=== PATIENT | male | born 1955 | race Caucasian/White ===

== ENCOUNTER 2024-05-20 10:05 | Emergency (ER) | payer MEDICARE, SELFPAY ==
[2024-05-20 10:31] VITALS: BP 144/94; PULSE 82; RESP 22; TEMP 36.1; O2SAT 95; BMI 50.2
--- NOTE | 2024-05-20 11:21 | ED.GENADULT ---
HPI - General Adult General Date Seen: 05/20/24 Chief complaint: Abdominal Pain Stated complaint: Hot/cold flashes, rhina hip pain, abd pain Time Seen by Provider: 05/20/24 11:21 History of Present Illness HPI narrative: 68-year-old male presenting to the ER today for pain in his upper abdomen as well as pain in both hips more so in the left hip than on the right. No fevers. Urine is darker color than normal but not bloody Per medical records from [facility] he has a history of hypertension, high cholesterol, morbid obesity, type 2 diabetes, diabetic retinopathy, the coronary artery disease with stents in his RCA. He was sent to the ER today by the [facility] triage nurse line. Med list includes Atorvastatin Glimepiride Symbicort Albuterol Atenolol Aspirin 81 Nitroglycerin p.r.n. Tamsulosin 0.4 mg Effient Lantus 10 units daily Imdur 30 mg daily Metformin 500 b.i.d. Losartan 12.5 mg daily The patient has quite a few complaints. Difficult for the patient to provide chronological history. It sounds like he has had a productive cough for quite sometime. He saw his primary care provider was started on a be oral inhaler about a month or so ago, he thinks. Since then his cough a gotten better. However he got ?a cold? about 3 weeks ago which included cough, stuffy nose, sore throat, fever and chills. And since then he has been feeling unwell. He says he took Tylenol and NyQuil and got the cold better. However as often happens when he gets a cold he developed a bad muscle ache in the center of his back. That happened a couple of weeks ago. He had he has massaging chair to get it to go away but then the next day developed pain more low in his back and more in his right flank and right lumbar paraspinous muscles. That is been coming and going since then. He has also developed pain in both of his hips. Discomfort and pain especially in the left hip but also in the right hip. It hurts whenever tries to walk or bend or flex his hips. He says his hips hurt so bad that he is not able to bend forward to put his shoes on for the past couple of days. He has been having to bend his leg backward in order to get it into the shoe. He has no known fall. No injury. No discoloration of his hips or legs. No rash. No redness. No bruising. No numbness or weakness in his legs. For the past several days he has noted fairly dark colored urine. He says he has had a poor appetite and has been eating much and has not been able to get into the kitchen because his hips are so sore. It sounds like he takes Tylenol and Aleve sporadically for his hip pain. He had taken some of that medicine yesterday and felt well enough to get out of the house to do some errands. He did have a couple of tacos yesterday when he was out doing errands. He also has been constipated for the past several days save for passage a small bowel movement yesterday. Since yesterday he has developed worsening central upper abdominal pain. He does not really know why it is getting worse. He thinks he might be constipated. He is not nauseous or vomiting. Past surgical abdominal history includes umbilical hernia repair. No cholecystectomy or appendectomy. 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 He has coronary disease with stents and is on aspirin and Effient. Related Data Previous Rx's ?Medication ?Instructions ?Recorded cephalexin 500 mg capsule 500 mg PO Q12H #14 caps 05/20/24 hydromorphone 2 mg tablet 2 mg PO Q6H PRN pain #7 tabs 05/20/24 (Dilaudid) Allergies Allergy/AdvReac Type Severity Reaction Status Date / Time No Known Drug Allergies Allergy Verified 05/20/24 10:29 [facility] Social History Smoking Status: Never smoker Do you use any of these nicotine containing products: None Second hand tobacco smoke exposure: No How often do you have a drink containing alcohol: never How often do you have six or more drinks on one occasion: Never AUDIT-C Alcohol total score: 0 Non-prescribed substance use: denies use service: No Exam Narrative: Exam Narrative: Constitutional: Appears well-developed and well-nourished. Alert. Conversant and very polite but tangential historian. Uncomfortable. HENT: Head: Atraumatic. Nose: Nose normal. Mouth/Throat: Oral mucosa is clear but dry, not desiccated or cracked. no trismus. Pharynx normal. Tonsils symmetric. No tonsillar enlargement, erythema, or exudate. Eyes: Conjunctivae normal. EOM normal. Pupils equal, round, and reactive to light. No scleral icterus. Neck: Normal range of motion. Neck supple. No tracheal deviation present. No JVD Cardiovascular: Normal rate, regular rhythm. No gallop. No friction rub. No murmur heard. Symmetric radial artery pulses Pulmonary/Chest: Effort normal. Because his hips are hurting is not able to sit forward for posterior lung exam. No stridor. No respiratory distress. No wheezes. No rales. No rhonchi . No tenderness. Abdominal: Soft. Bowel sounds normal. Protuberant due to body habitus but non tympanic. No mass. Bilateral upper and epigastric tenderness. No rebound. No guarding. Musculoskeletal: RUE: Normal range of motion. No tenderness. No deformity LUE: Normal range of motion. No tenderness. No deformity Pelvis is stable. He has tenderness to palpation laterally over both hips. No bruising. No redness or warmth. RLE: Range of motion the hip is limited by pain to about 10 or 15? of flexion. No deformity. No rotation. No crepitus. Quad, hamstring, femoral shaft nontender. Knee, lower leg, ankle, foot nontender. No significant ankle edema. LLE: Range of motion the hip is limited by pain to about 10 of flexion. Slightly worse than the right hip. No deformity. No rotation. No crepitus. Quad, hamstring, femoral shaft nontender. Knee, lower leg, ankle, foot nontender. No significant ankle edema. No deformity Lymph: No inguinal adenopathy. Neurological: Alert and oriented to person, place, and time. Normal strength. CN II-VII intact. No sensory deficit. GCS eye subscore is 4. GCS verbal subscore is 5. GCS motor subscore is 6. Normal coordination Skin: Skin is warm and dry. No rash noted. No pallor. Normal capillary refill. Psychiatric: Normal mood. Normal affect. Const: Vital Signs, click to edit/add: Vital Signs - 24 hr 05/20/24 10:31 Temperature 97 F L Pulse Rate [Pulse Oximeter] 82 Respiratory Rate 22 Blood Pressure [Ri ght Forearm] 144/94 H Pulse Oximetry 95 Oxygen Delivery Me thod Room Air Course Course ED Course: Recheck-says his hip pain is only marginally improved after Toradol. We discussed additional analgesics. He says in the past he has been very intolerant of oxycodone and does not know if he has ever had any success with hydrocodone. He recalls that after his hip surgery oxycodone cause substantial side effects for him but he did well with Dilaudid. He would like some of that. However he wants to drive himself home and it is not have anyone who could give him a safe ride home today. He is comfortable if we would give him a prescription for pain med so he can take it after he gets home today We discussed results of his workup. He does have evidence for pyuria and leukocytosis with which I think probably suggest an active UTI. No evidence for pyelonephritis or kidney stone, or renal failure. With his symptoms and leukocytosis, consider possible sepsis but no evidence for septic shock. Patient does not want to consider staying in the hospital. He wants to go home. Vital Signs Vital signs: Initial Vital Signs Temperature 97 F L 05/20/24 10:31 Temperature Source Temporal Artery Scan 05/20/24 10:31 Pulse Rate 82 05/20/24 10:31 Pulse Rhythm Regular 05/20/24 10:31 Respiratory Rate 22 05/20/24 10:31 Blood Pressure 144/94 H 05/20/24 10:31 Blood Pressure Mean 110 H 05/20/24 10:31 Blood Pressure Position Sitting 05/20/24 10:31 Pulse Oximetry 95 05/20/24 10:31 Oxygen Delivery Method Room Air 05/20/24 10:31 Vital Signs Temperature 97 F L 05/20/24 10:31 Pulse Rate 82 05/20/24 10:31 Respiratory Rate 22 05/20/24 10:31 Blood Pressure 144/94 H 05/20/24 10:31 Pulse Oximetry 95 05/20/24 10:31 Oxygen Delivery Method Room Air 05/20/24 10:31 Temperature 97 F L 05/20/24 10:31 Pulse Rate 82 05/20/24 10:31 Respiratory Rate 22 05/20/24 10:31 Blood Pressure 144/94 H 05/20/24 10:31 Pulse Oximetry 95 05/20/24 10:31 Oxygen Delivery Method Room Air 05/20/24 10:31 Medications Administered Medications: Discontinued Medications Generic Name Dose Route Start Last Admin Trade Name Devin PRN Reason Stop Dose Admin Sodium Chloride 500 mls @ 500 mls/hr 05/20/24 11:45 05/20/24 13:57 0.9 % Sodium Chloride 500 Ml IV 05/20/24 12:44 Infused .Q1H ONE Infusion Ketorolac Tromethamine 15 mg 05/20/24 11:45 05/20/24 12:45 Ketorolac 15 Mg/Ml Inj IVP 05/20/24 11:46 15 mg ONCE ONE Administration Medical Decision Making MDM Narrative Medical decision making narrative: 68-year-old male is referred to the ER today by his primary care clinic phone triage nurse. He has multiple symptoms including bilateral hip pain, body aches, low back pain, abdominal pain, concern for constipation, intermittent subjective chills, recent ?cold. He had apparently told his phone triage nurse about some shortness of breath but says to me that he is not really short of breath is just that he is having trouble walking because his hips are so sore Differential is quite broad. 1. Neuro. No headache. No recent fall. No confusion. No focal numbness or weakness. At this point I do not think he needs CT or MRI of his brain or spine. 2. Infectious disease. Does report some subjective fevers and chills at home. He is getting over a recent cold but says he is not having any coughing any more. Lung sounds are generally clear. No wheezing to suggest a post viral asthma or COPD exacerbation. Chest CT is negative for pneumonia. COVID influenza PCR negative. He does have abdominal pain. Urinalysis shows evidence for pyuria indicating possible UTI. CT scan is negative for any sign of cholecystitis, pancreatitis, colitis, diverticulitis, appendicitis. Skin exam negative for any signs of cellulitis. He has bilateral hip pain but no single joint to suggest septic arthritis. He does have leukocytosis. Pulse and blood pressure are normal. Venous lactic acid is normal. No evidence for sepsis physiology or septic shock at this time. Will treat him with a course of outpatient oral cephalexin for UTI. Discussed that urine culture is pending. 3. ortho. No recent falls or injuries but has had multiple sore areas of pain including the upper back pain a couple of weeks ago, low back pain last week, and for the past couple of days bilateral hip pain (left> right). The main complaint today is his hip pain. CT scan of his head hips and pelvis is obtained and shows no evidence for any acute obvious bony injury. However CT imaging is somewhat limited by artifact his hip replacements. He has no recent falls the which raise concern for hip or pelvic fracture. At this point I do not think he needs admission for hip MRI 4. Cardiac. Per his phone triage note they had mentioned some shortness of breath. He says he is not really short of breath. We did check screening EKG and troponin which are normal. Chest CT shows no evidence for pulmonary edema. N terminal proBNP is fairly low at 420. 5. Pulmonary. With reported shortness of breath per phone triage nurse consider possible PE with his recent illness and not moving around a lot at home. CT scan of his chest is fortunately negative for PE. He is not hypoxic or short of breath here in the ER. Lung sounds clear. No wheezing. 6. GI: LFTs and lipase normal. No evidence for acute cholecystitis or choledocholithiasis. He was concerned he might be very constipated based on his limited stool output for the past [address] scan negative for obstruction it does show a small to moderate stool burden in the rectum and sigmoid but otherwise not a large stool burden. Patient wants to discharge home. Prescription for Dilaudid 2 mg tablets-#7. Opiate precautions reviewed Lab Data Labs: Lab Results 05/20/24 05/20/24 Range/Units 12:15 12:55 WBC 13.21 H (4.50-11.00) K/uL RBC 4.55 (4.30-5.90) m/uL Hgb 13.4 L (13.5-17.5) gm/dL Hct 40.4 (37.0-53.0) % MCV 89 (80-100) fL MCH 30 (26-34) pg MCHC 33 (32-36) gm/dL RDW Coeff of Masha 13.0 (11.5-15.5) % Plt Count 286 (140-440) K/uL Neut % (Auto) 89.3 H (42.0-72.0) % Lymph % (Auto) 3.3 L (20-44) % [place] % (Auto) 6.7 (0.0-11.0) % Eos % (Auto) 0.3 (0.0-7.0) % Baso % (Auto) 0.2 (0.0-3.0) % Neut # (Auto) 11.80 H (1.7-7.0) K/uL Lymph # (Auto) 0.40 L (0.90-2.90) K/uL [place] # (Auto) 0.90 (0.00-0.90) K/UL Eos # (Auto) 0.00 (0.00-0.50) K/uL Baso # (Auto) 0.00 (0.00-0.30) K/uL Abs Immat Gran (auto) 0.00 (0.00-0.30) K/uL Imm/Tot Granulo (auto) 0.2 % Sodium 132 L (135-149) mmol/L Potassium 4.4 (3.6-5.1) mmol/L Chloride 97 (96-114) mmol/L Carbon Dioxide 25 (20-32) mmol/L Anion Gap 10 (7-15) mEq/L BUN 19 (7-30) mg/dL Creatinine 0.6 (0.5-1.5) mg/dL Estimated Creat Clear 74.01 Estimated GFR 106 ml/min Glucose 247 H (60-115) mg/dL Lactate 1.4 (0.5-1.9) mmol/L Calcium 9.1 (8.4-10.6) mg/dL Total Bilirubin 2.1 H (0.1-1.5) mg/dL AST 29 (12-35) U/L ALT 39 (4-50) U/L Alkaline Phosphatase 117 (40-150) U/L Troponin I < 0.01 L (0.01-0.04) ng/mL NT-Pro-B Natriuret Pep 420 pg/mL Total Protein 6.1 (6.0-8.3) g/dL Albumin 3.5 (3.3-5.0) g/dL Lipase 24 (23-300) U/L Urine Color Holly A (Yellow) Urine Appearance Clear (Clear) Urine pH 5.5 (5.0-8.5) Ur Specific [place] 1.025 (1.000-1.030) Urine Protein 1+ A (Negative) Urine Glucose (UA) Trace A (Negative) Urine Ketones 1+ A (Negative) Urine Blood Negative (Negative) Urine Nitrite Positive A (Negative) Urine Bilirubin 2+ A (Negative) Urine Urobilinogen 2.0 A (0.2-1.0) Ur Leukocyte Esterase Negative (Negative) Urine RBC 0-2 (0-2) Urine WBC 5-10 A (0-5) Ur Squamous Epith Cells Moderate A (None-Few) Urine Bacteria Moderate A (None) Urine Mucus Moderate A (None) SARS-CoV-2 (PCR) Negative SARS-CoV-2 (Negative) Influenza Type A (PCR) Negative PCR FLU A (Negative) Influenza Type B (PCR) Negative PCR FLU B (Negative) Imaging Data CT scan - chest: Attestation: I have reviewed the pertinent imaging results. Radiologist's impression: IMPRESSION: 1. No evidence of pulmonary embolus. 2. No acute pulmonary consolidation. 3. Severe coronary atherosclerosis. CT scan - abdomen: Attestation: I have reviewed the pertinent imaging results. Radiologist's impression: IMPRESSION: 1. No dilated bowel or localized inflammation. 2. Mild hepatic steatosis. ECG Data Attestation: I personally reviewed and interpreted this ECG as follows: Interpretation: Normal sinus rhythm Rate: 73 MO: 188 QRS axis: Normal axis. No pathologic Q-waves ST segment/T wave: Nonspecific T-wave flattening throughout. No ST segment elevation or depression. QTc: 416 Discharge Plan Discharge Clinical Impression: Acute UTI, Acute hip pain, bilateral, Myalgia Instructions: Urinary Tract Infection in Men (DC), Arthralgia (ED) Additional Instructions: As we discussed, please come back to the ER right away if you have worsening pain, weakness, or other new symptoms such as high fever, more trouble breathing, nausea vomiting, worsening dehydration, or if you have problems. Your laboratory workup shows signs that you have another bladder infection. Were going to treat this with an antibiotic called cephalexin which you take twice daily for 7 days. To treat the pain from your hips, start with simple medications such as Tylenol. Avoid taking too much Aleve or ibuprofen because it can upset your stomach and cause acid reflux. Use the prescription pain killer if needed for pain uncontrolled by Tylenol. Be careful with prescription pain killers because they cause dizziness, drowsiness, constipation, and can be addictive Please follow-up with your regular doctor for recheck within the next 3-5 days. Remember, come back to the ER right away if you are getting worse. Prescriptions: New hydromorphone [Dilaudid] 2 mg tablet 2 mg PO Q6H PRN (Reason: pain) Qty: 7 0RF cephalexin 500 mg capsule 500 mg PO Q12H Qty: 14 0RF Follow Up/Referrals: Evert Claudio MD [Primary Care Provider] - Stand Alone Forms: [facility] Info Instructions
--- NOTE | 2024-05-20 11:45 | CRLHL7_ITS ---
For Patients: As a result of the Century Cures Act, medical imaging exams and procedure reports are released immediately into your electronic medical record. You may view this report before your referring provider. If you have questions, please contact your health care provider. INDICATION: Upper abdominal pain, fever, bilateral hip pain, dyspnea and weakness. TECHNIQUE: Axial images were obtained from the diaphragm to the pubic symphysis. Reformats were obtained in the coronal and sagittal plane. IV Contrast: 140 cc Isovue 370 Oral Contrast: None COMPARISON: None. FINDINGS: Liver: Mildly decreased density of the liver diffusely without focal lesion. Gallbladder and bile ducts: Unremarkable. No stones or inflammation. No biliary dilatation. Spleen: Unremarkable. Normal in size without mass. Pancreas: Moderate to severe fatty infiltration. Adrenal glands: Unremarkable. No nodules. Kidneys: Unremarkable. No masses, stones, or hydronephrosis. Vasculature: Atherosclerosis without evidence of abdominal aortic aneurysm. GI tract: The stomach is unremarkable. No dilated loops of large or small intestine. Appendix unremarkable. Pelvis: Unremarkable. Bones: Status post bilateral total hip replacement. IMPRESSION: 1. No dilated bowel or localized inflammation. 2. Mild hepatic steatosis. Please note that all CT scans at this facility use dose modulation, iterative reconstruction, and/or weight-based dosing when appropriate to reduce radiation dose to as low as reasonably achievable. Dictated by Severiano Danielson MD @ 05/20/2024 1:35:01 PM (Electronically Signed)
--- NOTE | 2024-05-20 11:46 | CRLHL7_ITS ---
For Patients: As a result of the Century Cures Act, medical imaging exams and procedure reports are released immediately into your electronic medical record. You may view this report before your referring provider. If you have questions, please contact your health care provider. INDICATION: Upper abdominal pain, fever, bilateral hip pain, dyspnea and weakness. TECHNIQUE: CT chest PE was acquired with 140 cc Isovue 370 intravenous contrast. COMPARISON: None. FINDINGS: Heart and vasculature: Contrast opacification of the pulmonary arterial tree is adequate. No sign of pulmonary embolism. Thoracic aorta is normal in caliber. No pericardial effusion. Severe coronary atherosclerosis. Lungs and pleural: No pleural effusion or pneumothorax. Minimal areas of discoid atelectasis. Lymph nodes/mediastinum: No mediastinal, hilar, or axillary adenopathy. Chest wall: Bilateral gynecomastia. Bones: Diffuse idiopathic skeletal hyperostosis thoracic spine. IMPRESSION: 1. No evidence of pulmonary embolus. 2. No acute pulmonary consolidation. 3. Severe coronary atherosclerosis. Please note that all CT scans at this facility use dose modulation, iterative reconstruction, and/or weight-based dosing when appropriate to reduce radiation dose to as low as reasonably achievable. Dictated by Severiano Danielson MD @ 05/20/2024 1:27:09 PM (Electronically Signed)
[2024-05-20 12:23] LABS: Lactate* 1.4 mmol/L (0.5-1.9)
[2024-05-20 12:24] LABS: Basophils Percent Auto 0.2 % (0.0-3.0); Eosinophils Percent Auto 0.3 % (0.0-7.0); Hematocrit 40.4 % (37.0-53.0); Hemoglobin* 13.4 gm/dL (13.5-17.5); Immature Granulocytes Pct Auto 0.2 %; Lymphocytes Percent Auto 3.3 % (20-44); Mean Corpuscular HGB Conc 33 gm/dL (32-36); Mean Corpuscular Hemoglobin 30 pg (26-34); Mean Corpuscular Volume 89 fL (80-100); Monocytes Percent Auto 6.7 % (0.0-11.0); Neutrophils Percent Auto 89.3 % (42.0-72.0); Platelet Count* 286 K/uL (140-440); Red Blood Count 4.55 m/uL (4.30-5.90); White Blood Count* 13.21 K/uL (4.50-11.00)
[2024-05-20 12:25] LABS: Slide Review Reflex No
[2024-05-20 12:38] LABS: Albumin* 3.5 g/dL (3.3-5.0); Chloride* 97 mmol/L (96-114); Sodium* 132 mmol/L (135-149)
[2024-05-20 12:39] LABS: Potassium* 4.4 mmol/L (3.6-5.1)
[2024-05-20 12:41] LABS: Alanine Aminotransferase* 39 U/L (4-50); Alkaline Phosphatase* 117 U/L (40-150); Anion Gap 10 mEq/L (7-15); Aspartate Amino Transferase* 29 U/L (12-35); Bilirubin Total* 2.1 mg/dL (0.1-1.5); Blood Urea Nitrogen* 19 mg/dL (7-30); Calcium* 9.1 mg/dL (8.4-10.6); Carbon Dioxide* 25 mmol/L (20-32); Creatinine* 0.6 mg/dL (0.5-1.5); Est. Creatinine Clearance* 74.01; Estimated Glomerular Filt Rate 106 ml/min; Glucose* 247 mg/dL (60-115); Lipase* 24 U/L (23-300); Total Protein* 6.1 g/dL (6.0-8.3)
[2024-05-20] MEDS: KETOROLAC 15 MG/ML inj IVP (12:45)
[2024-05-20] MEDS: 0.9 % SODIUM CHLORIDE 500 ML 500 ML IV (12:45)
[2024-05-20 12:54] LABS: NT Pro B Type NatriureticPept* 420 pg/mL; Troponin I* < 0.01 ng/mL (0.01-0.04)
[2024-05-20 12:58] LABS: Appearance Urine Clear (Clear); Bilirubin Urine 2+ (Negative); Blood Urine Negative (Negative); Color Urine Amber (Yellow); Glucose Urine Trace (Negative); Ketones Urine 1+ (Negative); Leukocyte Esterase Urine Negative (Negative); Nitrite Urine Positive (Negative); Protein Urine 1+ (Negative); Specific Gravity Urine 1.025 (1.000-1.030); pH Urine 5.5 (5.0-8.5)
[2024-05-20 13:04] LABS: PCR FLU A Negative PCR FLU A (Negative); PCR FLU B Negative PCR FLU B (Negative); SARS PCR* Negative SARS-CoV-2 (Negative)
[2024-05-20 13:11] LABS: Bacteria Urine Moderate; Mucus Urine Moderate; RBC Urine 0-2 (0-2); Squamous Epithelial Cell Urine Moderate (None-Few)
== END 2024-05-20 14:36 | disposition home or self-care (01) ==
PROVIDERS: Emergency Provider Emergency Medicine; PCP Family Medicine
DX: N39.0 Urinary tract infection, site not specified (principal); M25.552 Pain in left hip; M25.551 Pain in right hip; M79.10 Myalgia, unspecified site
CPT/HCPCS: 36415; 71275; 74177; 80053; 81001; 82565; 83605; 83690; 83880; 84484; 85025; 87086; 87631; 96361; 96374; 99284; 99285; J1885; J7030; Q9967